=== PATIENT | female | born 1990 | race Caucasian/White ===

== ENCOUNTER 2023-06-09 20:14 | Emergency (ER) | payer OTHER, SELFPAY ==
[2023-06-09 20:16] VITALS: BP 153/102; PULSE 89; RESP 16; TEMP 36.4; O2SAT 100; BMI 43.4
--- NOTE | 2023-06-09 21:22 | RAD_ITS ---
INDICATION: foreign body EXAMINATION/TECHNIQUE: X-RAY - XR Neck Soft Tissue COMPARISON: FINDINGS: SOFT TISSUES: Unremarkable. There is a 3.0 x 2.2 cm heterogeneous opacity just below the epiglottis possibly represent a foreign body. EPIGLOTTIS: No pathologic thickening or enlargement. PROXIMAL AIRWAY: Grossly patent. RAD/Neck for Soft Tissue IMPRESSION: There is a 3.0 x 2.2 cm heterogeneous opacity just below the epiglottis possibly represent a foreign body. Electronically Signed: Wyatt Wallace DO at 21:43 EDT ,
[2023-06-09 22:14] VITALS: PULSE 74; RESP 16; O2SAT 96
--- NOTE | 2023-06-09 22:51 | CT_ITS ---
INDICATION: foreign body - abnormal neck xray EXAMINATION: CT NECK WITH CONTRAST - CT Soft Tissue Neck W/ Contrast Injection TECHNIQUE: Helically acquired images were obtained of the neck following IV contrast. A radiation dose optimization technique was used for this scan. IV Contrast dosage and agent: 75 mL Isovue-370 RADIATION DOSAGE (If Supplied By Facility): CTDIvol = ( 17.58 ) mGy, DLP = ( 1027.55 ) mGycm COMPARISON: Neck Soft Tissue radiograph June 09, 2023 FINDINGS: Mild symmetric enlargement of the lingual tonsils. [place] and adenoid tonsils are unremarkable. No Parapharyngeal abscess. Parapharyngeal fat is preserved. Salivary glands are symmetric and normal in appearance. Normal epiglottis. No prevertebral soft tissue thickening. Unremarkable symmetric vocal cords. Normal thyroid. Scattered mild paranasal sinus mucoperiosteal thickening. Leftward directed inferior osseous nasal septal spur contacting the inferior nasal turbinate. Paradoxical curvature of the anterior middle nasal turbinates. Partial opacification of the left maxillary infundibula. No acute osseous finding. Lung apices are clear. CT/Soft Tissue Neck WITH Contrast IMPRESSION: No CT evidence of foreign body within the imaged aerodigestive tract. Symmetric enlargement of the bilateral lingual tonsils without peritonsillar fluid collection or abscess. Scattered sinus disease. Sinus anatomy as above. Electronically Signed: Maciel Berg MD at 1:23 EDT ,
--- NOTE | 2023-06-09 22:52 | EX.ED.DYSGE1 ---
HPI History of Present Illness Chief Complaint: Foreign Body Informant: patient Narrative Narrative: 32-year-old female presenting to the emergency room with chief complaint of possible esophageal foreign body. Patient states she was cooking chicken and ate some shredded chicken. She states she felt that it got caught just below her larynx. She was able to drink a little bit of water but it came up shortly thereafter. She notes that it was not getting better so she came to emergency. Nursing protocol placed a neck x-ray. She states that just before the neck x-ray she felt something shift and is now feeling better. She notes that this has happened several times before but she has never had to seek treatment for it. Has never had endoscopy. She states that she was told recently that she had something abnormal with her thyroid and is supposed to follow-up on that. [facility] Medical History Asthma Home Medications Albuterol Inhaler 01/30/16 [History Last Taken Unknown] fluticasone propionate 250 mcg/actuation blister powder for inhalation (Flovent Diskus) 2 puff inhalation DAILY 01/30/16 [History Last Taken 01/29/16] montelukast 10 mg tablet 10 mg PO DAILY 01/30/16 [History Last Taken 01/29/16] vits,calcium no.78-iron fumarate-folic acid 29 mg-1 mg tablet (Prenatabs FA) 1 tab PO DAILY 01/30/16 [History Last Taken 01/29/16] Allergy/AdvReac Type Severity Reaction Status Date / Time penicillin G AdvReac Hives Verified 06/09/23 20:16 Social History Smoking Status: Never smoker ROS [facility] ED Constitutional Constitutional ED: Denies chills or weight loss Eyes Eyes: Denies change in vision or diplopia ENT ENT ED: Reports other Details: See history of present illness ; Denies ear pain, rhinorrhea or sore throat Cardiovascular Cardiovascular: Denies chest pain, orthopnea, palpitations or racing heartbeat Respiratory/Chest Respiratory/Chest: Denies cough, dyspnea or orthopnea Gastrointestinal Gastrointestinal: Denies abdominal pain, diarrhea, nausea or vomiting Genitourinary Genitourinary ED: Denies dysuria, hematuria or urinary frequency Musculoskeletal Musculoskeletal: Denies arthralgias or myalgias Integumentary Denies abscess or rash Neurologic Neurologic: Denies headache(s) or weakness Psychiatric Psychiatric: Denies anxiety, depression, suicidal ideation or suicidal thoughts Endocrine Endocrinology: Denies polydipsia, polyphagia or polyuria Allergic/Immunologic Allergic/Immunologic ED: Denies mouth swelling, tongue swelling or urticaria EXAM Physical Exam Narrative Exam Narrative: Well-appearing female sitting comfortably in the bed. Patient is handling secretions normally. No acute distress. Const Vital Signs: 06/09/23 20:16 06/09/23 22:14 06/09/23 22:58 Temperature 97.5 F L Temperature Source Temporal Pulse Rate 89 74 68 Respiratory Rate 16 16 19 H Respiratory Effort Respiratory Pattern Blood Pressure 153/102 H 135/98 H Blood Pressure Mean 119 110 Pulse Ox 100 96 97 Oxygen Delivery Method Room Air Room Air 06/09/23 23:12 06/10/23 00:00 06/10/23 01:38 Temperature 97.6 F L Temperature Source Pulse Rate 75 64 Respiratory Rate 16 16 Respiratory Effort Normal Non-Labored Respiratory Pattern Normal Blood Pressure 135/74 H 108/67 Blood Pressure Mean 94 80 Pulse Ox 99 100 Oxygen Delivery Method Room Air Positive well nourished, well developed and obese General Appearance ED: well developed Nutritional Appearance: obese HEENT Reports normocephalic, head/scalp atraumatic and moist mucous membranes Eyes PERRL and EOMs intact bilaterally Neck no lymphadenopathy, supple and no JVD Resp normal respiratory effort and clear to auscultation bilaterally Cardio regular rate, regular rhythm and no murmurs GI normal to inspection, nondistended, normoactive bowel sounds and non-tender Palpation: soft Back/Spine no CVA tenderness and normal ROM Extremity normal to inspection General Extremety ED: Negative for edema General Extremity: Negative for edema Neuro oriented x3 and CN's II-XII intact bilaterally Sensorium / Orientation: alert Motor Exam: strength 5/5 throughout Psych mental status grossly normal Mood & Affect: Negative for depressed or tearful Skin no rashes or lesions noted and no wounds MDM MDM MDM Narrative Medical decision making narrative: My independent interpretation of the plain films of the neck is possible for me body inferior epiglottis. Radiology read reviewed by myself. Patient was given a Coke and has been tolerating it. She is feeling better. She states that her throat however still feels raw.` CT of the neck was obtained with contrast. This was negative for obvious foreign body below the epiglottis that was noted on the x-ray. Patient is tolerating Coke. She will be discharged home. Advised her to follow-up with primary care discussed possible barium swallow versus endoscopy. History & Record Review Discussion w/independent historian: Patient Lab Data Attestation: I reviewed the patient's lab results. Labs: Laboratory Results - last 24 hr 06/09/23 06/10/23 23:11 00:14 Sodium Cancelled 135 L Potassium Cancelled 3.7 Chloride Cancelled 105 Carbon Dioxide Cancelled 24.0 Anion Gap Cancelled 6 BUN Cancelled 13 Creatinine Cancelled 0.87 Estim Creat Clear Calc Cancelled 109.14 Est GFR (MDRD) Af Amer Cancelled 96 Est GFR (MDRD) Non-Af Cancelled 79 BUN/Creatinine Ratio Cancelled 15.0 Glucose Cancelled 137 H Calcium Cancelled 8.5 Radiography Diagnostic Testing: Clinical Impression(s) from Imaging Studies Soft Tissue Neck X-Ray 06/09/23 21:22 IMPRESSION: There is a 3.0 x 2.2 cm heterogeneous opacity just below the epiglottis possibly represent a foreign body. Electronically Signed: Wyatt Wallace DO at 21:43 EDT , Soft Tissue Neck CT 06/09/23 22:51 IMPRESSION: No CT evidence of foreign body within the imaged aerodigestive tract. Symmetric enlargement of the bilateral lingual tonsils without peritonsillar fluid collection or abscess. Scattered sinus disease. Sinus anatomy as above. Electronically Signed: Maciel Berg MD at 1:23 EDT , Discharge Plan Triage Chief Complaint: Foreign Body ED Provider: Aaron Elizabeth Dx/Rx/DC Orders Clinical Impression: Esophageal foreign body, Throat pain Instructions: ED Esophageal Foreign Body, Resolved Prescriptions: No Action montelukast 10 MG tablet 10 mg PO DAILY fluticasone propionate [Flovent Diskus] 1 PUFF inhaler 2 puff inhalation DAILY [id number] [Prenatabs FA] 1 TABLET tablet 1 tab PO DAILY Albuterol Inhaler Primary Care Provider: Fredy Lezama Referrals: Fredy Lezama MD [Primary Care Provider] - Keep Madonna appointment Friend,DO Wei [Med Staff - Active Staff] - As soon as possible (for GI evaluation for possible endoscopy evaluation) Disposition Disposition: Home, Self Care Discharge Date/Time: 06/10/23 01:39
[2023-06-09 22:58] VITALS: BP 135/98; PULSE 68; RESP 19; O2SAT 97
[2023-06-10] VITALS: BP 135/74; PULSE 75; RESP 16; O2SAT 99
[2023-06-10 00:44] LABS: Anion Gap 6 (5-15); BUN 13 mg/dL (7-18); Calcium,Total 8.5 mg/dL (8.5-10.1); Chloride 105 mmol/L (98-107); Creatinine, Serum 0.87 mg/dL (0.55-1.02); EST Glomerular Filtration Rate 79 mL/min (>60); Est Glom Filt Rate - Afr Amer 96 mL/min (>60); Estimated Creatinine Clearance 109.14 ml/min; Glucose 137 mg/dL (74-106); Potassium 3.7 mmol/L (3.5-5.1); Sodium Level 135 mmol/L (136-145)
[2023-06-10 01:38] VITALS: BP 108/67; PULSE 64; RESP 16; TEMP 36.4; O2SAT 100
== END 2023-06-10 01:39 | disposition home or self-care (01) ==
PROVIDERS: Emergency Provider Emergency Medicine; PCP Family Medicine; Visit Provider Emergency Medicine
DX: T18.128A Food in esophagus causing other injury, initial encounter (principal); R07.0 Pain in throat; W44.F3XA Food entering into or through a natural orifice, initial encounter; Y93.89 Activity, other specified; J45.909 Unspecified asthma, uncomplicated; Z79.51 Long term (current) use of inhaled steroids
CPT/HCPCS: 70360; 70491; 80048; 99282; Q9967; A4216

== ENCOUNTER 2023-09-12 19:39 | Emergency (ER) | payer OTHER, SELFPAY ==
[2023-09-12 19:40] VITALS: BP 127/92; PULSE 87; RESP 16; TEMP 35.7; O2SAT 97
[2023-09-12 19:48] VITALS: BMI 43.3
--- NOTE | 2023-09-12 19:55 | EDS_ITS ---
HPI History of Present Illness Chief Complaint: Upper Extremity Injury Detail of Chief Complaint: Right hand injury Informant: patient Narrative Narrative: Patient presents secondary to right thumb injury. She was reaching between a fence to get a bucket, when her sheep hit her hand pinning it between the sheep and a fence. She has pain to the base of the right thumb and has not been able to move it since time of injury. She is right-hand dominant. [facility] Medical History Asthma Home Medications ?Medication ?Instructions ?Recorded ?Last Taken ?Type Albuterol Inhaler 01/30/16 Unknown History fluticasone propionate 250 2 puff inhalation DAILY 01/30/16 01/29/16 History mcg/actuation blister powder for inhalation (Flovent Diskus) montelukast 10 mg tablet 10 mg PO DAILY 01/30/16 01/29/16 History vits,calcium no.78-iron 1 tab PO DAILY 01/30/16 01/29/16 History fumarate-folic acid 29 mg-1 mg tablet (Prenatabs FA) Allergy/AdvReac Type Severity Reaction Status Date / Time penicillin G AdvReac Hives Verified 09/12/23 19:40 Social History Smoking Status: Never smoker ROS ROS ED Constitutional Constitutional ED: Denies chills or fever(s) Cardiovascular Cardiovascular: Denies chest pain Respiratory/Chest Respiratory/Chest: Denies cough or dyspnea Gastrointestinal Gastrointestinal: Denies abdominal pain Musculoskeletal Musculoskeletal: Reports extremity pain; Denies back pain Integumentary Denies Abrasions or rash Neurologic Neurologic: Reports paresthesias and weakness; Denies headache(s) Psychiatric Psychiatric: Denies anxiety or depression Allergic/Immunologic Allergic/Immunologic ED: Denies lip swelling or urticaria EXAM Physical Exam Const Vital Signs: 09/12/23 19:40 Temperature 96.3 F L Temperature Source Temporal Pulse Rate 87 Respiratory Rate 16 Blood Pressure 127/92 H Blood Pressure Mean 103 Pulse Ox 97 Oxygen Delivery Method Room Air Positive well nourished and well developed General Appearance ED: well developed HEENT Reports moist mucous membranes Eyes EOMs intact bilaterally Chest Wall inspection of chest normal and palpation of chest normal Resp normal respiratory effort and clear to auscultation bilaterally Cardio regular rate and regular rhythm GI non-tender Palpation: soft Extremity Extremity Narrative: Tender to palpation with mild edema over the proximal aspect of the right thumb. Decreased range of motion. He has good cap refill distally. No tenderness at the wrist or elbow. Neuro oriented x3 Psych mental status grossly normal MDM MDM MDM Narrative Medical decision making narrative: Patient given a dose of naproxen. Right hand x-rays obtained to evaluate for fracture, dislocation. Treatment and Re-Evaluation Narrative: Right hand x-rays per my interpretation reveal no obvious fracture or dislocation. Radiology interpretation reviewed and agrees. On repeat evaluation patient does have very slight flexion and extension at the thumb. She be placed in a thumb spica splint will monitor her symptoms. We did discuss possibility of a tendon injury, although now that she can slightly flex and extend my suspicion is less. I will refer her to orthopedic hand for follow-up if not improving. Patient comfortable with the plan. Discharge Plan Triage Chief Complaint: Upper Extremity Injury ED Provider: Melissa Sumner Dx/Rx/DC Orders Clinical Impression: Crushing injury of finger of right hand Instructions: ED Crush Injury, Hand Prescriptions: No Action montelukast 10 MG tablet 10 mg PO DAILY fluticasone propionate [Flovent Diskus] 1 PUFF inhaler 2 puff inhalation DAILY [id number] [Prenatabs FA] 1 TABLET tablet 1 tab PO DAILY Albuterol Inhaler Primary Care Provider: Fredy Lezama Referrals: Fredy Lezama MD [Primary Care Provider] - Lashay Navarro MD [Non-Staff] - As Needed Activity Restrictions/Additional Instructions: Dr. Navarro is one of the orthopedic hand surgeons at [facility] in [place]. If not improving, you can follow-up with her or any of her partners. Print Language: Russian Disposition Disposition: Home, Self Care
--- NOTE | 2023-09-12 20:00 | RAD_ITS ---
EXAM: XR RIGHT HAND COMPLETE, 3 OR MORE VIEWS CLINICAL INDICATION: injury TECHNIQUE: Frontal, lateral and oblique views of the right hand. COMPARISON: No relevant prior studies available. FINDINGS: BONES/JOINTS: Unremarkable. No acute fracture. No subluxation. Normal alignment. Preservation of the joint space. No sclerotic or destructive changes observed. SOFT TISSUES: Unremarkable. No soft tissue swelling or gas. No radiopaque foreign body. RAD/Hand Min 3 Views IMPRESSION: Negative right hand x-rays. Electronically Signed: Brandon Mcgrath MD at 21:08 EDT ,
[2023-09-12] MEDS: Naproxen 500 MG Tablet PO (20:05)
[2023-09-12 21:37] VITALS: BP 128/77; PULSE 71; RESP 16; TEMP 36.7; O2SAT 99
== END 2023-09-12 21:41 | disposition home or self-care (01) ==
PROVIDERS: Emergency Provider Emergency Medicine; PCP Family Medicine; Visit Provider Emergency Medicine
DX: S67.198A Crushing injury of other finger, initial encounter (principal); W55.32XA Struck by other hoof stock, initial encounter; Y93.89 Activity, other specified
CPT/HCPCS: 73130; 99282

== ENCOUNTER 2024-03-28 13:03 | Emergency (ER) | payer OTHER, SELFPAY ==
[2024-03-28 13:04] VITALS: BP 139/97; PULSE 69; RESP 16; TEMP 36.7; O2SAT 98; BMI 45.4
[2024-03-28 14:45] LABS: Absolute Lymphocyte Count 2.29 X10^3/uL (0.83-4.51); Basophil# 0.03 X10^3/uL; Basophil% 0.4 % (0-1); Eosinophil# 0.36 X10^3/uL; Eosinophils% 5.1 % (0-5); Lymphocyte # 2.29 X10^3/ul (0.83-4.51); Lymphocyte % 32.2 % (19-41); Mean Corp Hgb Conc 32.5 g/dL (32-36); Mean Corpuscular Hgb 28.6 pg (27.0-32.0); Mean Corpuscular Volume 87.9 fL (81-99); Mean Platelet Vol. 10.7 fl (6.2-12.0); Monocyte# 0.44 X10^3/uL; Monocyte% 6.2 % (0-10); NRBC Flagged by Analyzer 0 % (0-5); Neutrophil # 3.98 X10^3/uL (2.7-7.7); Neutrophil % 55.8 % (47-70); Platelet Count 355 K/mm3 (150-450); RBC Distribution Width CV 13.6 % (11.6-14.6); RBC Distribution Width SD 43.9 fl (35.1-43.9); Red Blood Count 4.55 M/mm3 (4.2-5.4); White Blood Count 7.1 K/mm3 (4.4-11.0)
[2024-03-28 15:05] LABS: Internal QC Validated? YES +Cl - CLEAR BKGD; Pregnancy, Serum, hCG Quali. NEGATIVE Negative
[2024-03-28 15:10] LABS: ALB/GLOB Ratio 0.8 RATIO (0.9-2.4); AST(SGOT) 14 U/L (15-37); Alanine Aminotransfer ALT/SGPT 23 U/L (13-56); Albumin, Serum 3.4 g/dL (3.2-5.0); Alkaline Phosphatase 86 U/L (45-117); Anion Gap 6 (5-15); BUN 11 mg/dL (7-18); Calcium,Total 8.9 mg/dL (8.5-10.1); Chloride 105 mmol/L (98-107); Creatinine, Serum 0.85 mg/dL (0.55-1.02); EST Glomerular Filtration Rate 81 mL/min (>60); Est Glom Filt Rate - Afr Amer 98 mL/min (>60); Estimated Creatinine Clearance 113.75 ml/min; Globulin 4.3 g/dL (2.2-4.2); Glucose 151 mg/dL (74-106); Potassium 3.9 mmol/L (3.5-5.1); Protein, Total 7.7 g/dL (6.4-8.2); Sodium Level 138 mmol/L (136-145)
--- NOTE | 2024-03-28 16:21 | CT_ITS ---
STUDY: CT ABDOMEN AND PELVIS WITH CONTRAST REASON FOR EXAM: Female, 33 years old. RLQ pain RADIATION DOSAGE (If Supplied By Facility): CTDIvol = ( 16.96 ) mGy, DLP = ( 1268.29 ) mGycm TECHNIQUE: Transaxial images were obtained from the dome of the diaphragm to the symphysis pubis without oral contrast. IV 100mL Isovue-300 was administered. Sagittal and coronal images were reconstructed. Individualized dose optimization techniques were used for this CT. COMPARISON: None. FINDINGS: The visualized lung bases are unremarkable. The visualized portions of the heart are within normal limits. Normal liver. Normal gallbladder and extrahepatic biliary system. Normal spleen. Normal pancreas. Normal bilateral adrenal glands. Normal right kidney. Normal left kidney. Normal visualized stomach. Normal small intestine. Normal colon. The appendix is visualized and appears normal. Normal abdominal aorta. Normal inferior vena cava. Normal retroperitoneum. Normal urinary bladder. Normal abdominal wall. Normal osseous structures. CT/Abdomen/Pelvis W IV Cont ONLY IMPRESSION: No acute pathology of the abdomen and pelvis. Electronically Signed: Wyatt Wallace DO at 17:08 [facility] Reading Location ID and State: [facility] / [place] Tel [phone], Service support ,
--- NOTE | 2024-03-28 16:22 | ED.VIS.GI ---
HPI HPI - GI History of Present Illness Chief Complaint: Abd Pain Informant: patient Narrative Narrative: Patient came from urgent care for evaluation. 1 week history waxing waning pain right lower back that wraps around to her lower abdomen. Has been using heating pads will slightly alleviate symptoms however pain will come back. Subjective fevers. Yesterday vomiting and diarrhea started nonbloody. Total of 3 vomiting episode last time this morning no hematemesis. Total of 2 diarrhea with last 1 this morning. She has been have urine frequency for 2 weeks. Her urine test that urgent care reported negative. Last menstrual period little over 2 weeks ago. 2 C-sections the past. No other abdominal surgeries. Allergic to penicillin and cephalexin causing hives. She ate some crackers 1/2-hour ago while in the waiting room. Patient denies any ovarian issues. Prior similar symptoms: No PFSH PFSH Medical History (Updated 03/28/24 @ 20:[address] Edy Bearden, DO) Enlarged thyroid delivery delivered Asthma Home Medications ?Medication ?Instructions ?Recorded ?Last Taken ?Type Albuterol Inhaler 01/30/16 Unknown History fluticasone propionate 250 2 puff inhalation DAILY 01/30/16 01/29/16 History mcg/actuation blister powder for inhalation (Flovent Diskus) montelukast 10 mg tablet 10 mg PO DAILY 01/30/16 01/29/16 History vits,calcium no.78-iron 1 tab PO DAILY 01/30/16 01/29/16 History fumarate-folic acid 29 mg-1 mg tablet (Prenatabs FA) Allergy/AdvReac Type Severity Reaction Status Date / Time penicillin G AdvReac Hives Verified 03/28/24 13:07 Social History Smoking Status: Never smoker ROS ROS ED Constitutional Constitutional ED: Reports fever(s); Denies chills or sweats ENT ENT ED: Denies sore throat Cardiovascular Cardiovascular: Denies chest pain, leg edema, palpitations or racing heartbeat Respiratory/Chest Respiratory/Chest: Denies cough, dyspnea or dyspnea on exertion Gastrointestinal Gastrointestinal: Reports abdominal pain, diarrhea and vomiting; Denies nausea Genitourinary Genitourinary ED: Reports urinary frequency; Denies dysuria or hematuria Musculoskeletal Musculoskeletal: Reports back pain; Denies extremity pain or neck pain Integumentary Denies rash or wounds Neurologic Neurologic: Denies headache(s), paresthesias or weakness EXAM Physical Exam Const Vital Signs: 03/28/24 13:04 03/28/24 17:02 03/28/24 19:01 Temperature 98.1 F 98.2 F 98.2 F Temperature Source Oral Oral Oral Pulse Rate 69 77 65 Respiratory Rate 16 18 18 Blood Pressure 139/97 H 133/85 H 116/65 Blood Pressure Mean 111 101 82 Pulse Ox 98 99 99 Oxygen Delivery Method Room Air Room Air Room Air Positive well nourished and well developed General Appearance ED: well developed and NAD HEENT Reports moist mucous membranes normocephalic and atraumatic Eyes General Eye ED: Yes normal appearance of both eyes Neck full ROM Chest Wall Chest: Negative for tenderness Resp normal respiratory effort and normal air movement Effort and Inspection: symmetric chest movement; Negative for respiratory distress Cardio regular rate, regular rhythm and no murmurs Peripheral Pulses: pulses 2+ throughout GI normal to inspection, nondistended, normoactive bowel sounds GI Narrative: Tenderness right lower quadrant there is no guarding. Negative Rovsing's. Palpation: Negative for guarding or rebound tenderness present Extremity normal to inspection General Extremety ED: Negative for edema or tenderness General Extremity: Negative for edema Neuro oriented x3 and no sensory deficits noted Sensorium / Orientation: awake and alert Skin no rashes or lesions noted and no wounds MDM MDM MDM Narrative Medical decision making narrative: Interventions / MDM: Differential diagnosis: Abdominal pain, ovarian cyst Diagnosis considered but do not suspect: Appendicitis however CT negative. Kidney stone however CT negative. My EKG interpretation: N/A Imaging independently reviewed and interpreted by myself: CT abdomen pelvis IV contrast: No acute process. Normal appendix. Pelvic ultrasound: Left ovarian cyst of 1.5 cm. External documents reviewed: N/A Test considered but not ordered:N/A ED course: Patient labs per protocol. White count normal creatinine normal negative. Vomiting diarrhea since yesterday will give IV fluids she declines any pain medicines at this time. With pain right lower quadrant obtain CT abdomen pelvis IV contrast for further evaluation. 165: Reported by nursing patient changed her mind on pain medications. Pending results of CT at this time. Morphine Zofran IV ordered. 1729: CT negative and normal appendix. Pain she is more comfortable on reevaluation and still had some pain lower abdomen pelvis region. There is no comment of the pelvic structures from CT. With 1 week of symptoms, will obtain ultrasound for further evaluation. 2009: Pelvic ultrasound notable for 1.5 cm left ovarian cyst. No other findings noted. Symptom control on exam. Unclear on diagnosis this time however she does have pain that radiates from her back around her abdomen there is no current rash she is a week and the symptoms. Discussed monitoring for rash that could be shingles. She will continue ibuprofen 600 mg every 6 hours as needed she does have a PCP and a felt washing machine tender. Return precaution discussed if develop fevers or worsening symptoms. All questions were answered. Re-evaluation: stable Disposition discussed with patient/family/significant other: Patient Case discussed with consulting clinician: N/A This note was generated with [employer] sent[employer] dictation software. It may contain incorrect words, spelling, and punctuation that were not noted in checking the note before signing. Lab Data Attestation: I reviewed the patient's lab results. Labs: Laboratory Results - last 24 hr 03/28/24 03/28/24 14:32 17:00 WBC 7.1 RBC 4.55 Hgb 13.0 Hct 40.0 MCV 87.9 MCH 28.6 MCHC 32.5 RDW Std Deviation 43.9 RDW Coeff of Ney 13.6 Plt Count 355 MPV 10.7 Immature Gran % (Auto) 0.300 Neut % (Auto) 55.8 Lymph % (Auto) 32.2 Fisher % (Auto) 6.2 Eos % (Auto) 5.1 H Baso % (Auto) 0.4 Absolute Neuts (auto) 4.0 Absolute Lymphs (auto) 2.29 Nucleated RBC % 0 Sodium 138 Potassium 3.9 Chloride 105 Carbon Dioxide 27.0 Anion Gap 6 BUN 11 Creatinine 0.85 Estim Creat Clear Calc 113.75 Est GFR (MDRD) Af Amer 98 Est GFR (MDRD) Non-Af 81 BUN/Creatinine Ratio 13.0 Glucose 151 H Calcium 8.9 Total Bilirubin 0.40 AST 14 L ALT 23 Alkaline Phosphatase 86 Total Protein 7.7 Albumin 3.4 Globulin 4.3 H Albumin/Globulin Ratio 0.8 L Serum , Qual NEGATIVE Urine Color Yellow Urine Clarity Clear Urine pH 6.5 Ur Specific [place] 1.015 Urine Protein 15 H Urine Glucose (UA) Normal Urine Ketones Negative Urine Occult Blood Negative Urine Nitrite Negative Urine Bilirubin Negative Urine Urobilinogen Normal Ur Leukocyte Esterase 25 H Urine RBC 0 SEEN Urine WBC 0-5 SEEN Ur Squamous Epith Cells 5-10 SEEN Ur Transition Epith Cell 0-5 SEEN Urine Bacteria RARE Urine Mucus 0 SEEN Radiography Diagnostic Testing: Clinical Impression(s) from Imaging Studies Abdomen/Pelvis CT 03/28/24 16:21 IMPRESSION: No acute pathology of the abdomen and pelvis. Electronically Signed: Wyatt Wallace DO at 17:08 EST , Transvaginal US 03/28/24 17:33 IMPRESSION: Small left ovarian cyst. Electronically Signed: Wyatt Wallace DO at 19:21 EST , Discharge Plan Triage Chief Complaint: Abd Pain ED Provider: Edy Bearden Dx/Rx/DC Orders Clinical Impression: Abdominal pain, Cyst of left ovary Instructions: Abdominal Pain, ED Ovarian Cyst Prescriptions: No Action montelukast 10 MG tablet 10 mg PO DAILY fluticasone propionate [Flovent Diskus] 1 PUFF inhaler 2 puff inhalation DAILY [id number] [Prenatabs FA] 1 TABLET tablet 1 tab PO DAILY Albuterol Inhaler Stand Alone Forms: ED Work / School Excuse Primary Care Provider: Fredy Lezama Referrals: Fredy Lezama MD [Primary Care Provider] - 3-5 Days if not improving Activity Restrictions/Additional Instructions: CT abdomen pelvis, normal appendix. Ultrasound pelvis 1.5 cm left ovarian cyst. Use ibuprofen 600 mg every 6 hours as needed. Monitor for rash on the right side that could be shingles. Follow-up your doctor. We develop fevers or worsening symptoms, return to ED for reevaluation. Print Language: Syriac Disposition Disposition: Home, Self Care
[2024-03-28] MEDS: 0.9% Normal Saline (1000mL) 1,000 ML 999 ML IV (16:58)
[2024-03-28] MEDS: Morphine 4 MG/ML Syringe IV (16:58)
[2024-03-28] MEDS: Ondansetron 4 MG/2 ML Vial IV (16:59)
[2024-03-28 17:02] VITALS: BP 133/85; PULSE 77; RESP 18; TEMP 36.8; O2SAT 99
[2024-03-28 17:12] LABS: Mucous, Urine 0 SEEN /hpf (<or=2+); Red Blood Cells-Urine 0 SEEN /hpf (0-5)
[2024-03-28 17:22] LABS: Color, Urine Yellow (Yellow); Glucose, Dipstick Normal (Normal); Ketone-Dipstick Negative (Negative); Leukocyte Esterase-Dipstick 25 /ul (Negative); Nitrite-Dipstick Negative (Negative); Occult Blood-Urine Negative /ul (Negative); Protein-Dipstick 15 mg/dl (Negative); Specific Gravity, Urine 1.015 (1.002-1.030); Urine Bilirubin Dipstick Negative (Negative); Urine Clarity Clear (Clear); Urine Urobilinogen Normal (Normal); Urine pH 6.5 (5.0 - 8.0)
[2024-03-28 17:31] LABS: Squamous Epithelial Cells - UA 5-10 SEEN /hpf (5-10); White Blood Cells 0-5 SEEN /hpf (0-5)
[2024-03-28 17:32] LABS: Bacteria RARE /hpf (None Seen); Transitional Epithelial - Ur 0-5 SEEN /hpf (0-5)
--- NOTE | 2024-03-28 17:33 | US_ITS ---
INDICATION: pain EXAMINATION: Ultrasound US Transvaginal Non-OB TECHNIQUE: Transvaginal (for optimal evaluation of the adnexa) pelvic ultrasound was performed. Grayscale, spectral waveform, and color flow Doppler evaluation of the adnexa. COMPARISON: FINDINGS: UTERUS: Anteverted. The uterus measures 11.6 x 6.8 x 6.0 cm. There is no uterine mass. The endometrial stripe measures 11 mm in AP diameter which is within normal limits. Slight fluid is noted in the cervical canal. RIGHT OVARY: 2.8 x 2.1 x 1.8 cm. Non-enlarged, normal echogenicity. There is normal arterial inflow and venous outflow present in the right ovary. LEFT OVARY: 3.7 x 2.4 x 2.3 cm. 1.6 x 1.9 x 1.5 cm cyst. There is normal arterial inflow and venous outflow present in the left ovary. FREE FLUID: None. US/Transvaginal Non- IMPRESSION: Small left ovarian cyst. Electronically Signed: Wyatt Wallace DO at 19:21 EST ,
[2024-03-28 19:01] VITALS: BP 116/65; PULSE 65; RESP 18; TEMP 36.8; O2SAT 99
[2024-03-28 20:22] VITALS: BP 118/72; PULSE 68; RESP 15; TEMP 36.6; O2SAT 99
== END 2024-03-28 20:23 | disposition home or self-care (01) ==
PROVIDERS: Emergency Provider Emergency Medicine; PCP Family Medicine; Referring Provider Emergency Medicine; Visit Provider Emergency Medicine
DX: R10.31 Right lower quadrant pain (principal); N83.202 Unspecified ovarian cyst, left side; M54.9 Dorsalgia, unspecified; R19.7 Diarrhea, unspecified; R11.10 Vomiting, unspecified; R35.0 Frequency of micturition; Z88.0 Allergy status to penicillin; Z79.899 Other long term (current) drug therapy
CPT/HCPCS: 74177; 76830; 80053; 81001; 84703; 85025; 96361; 96374; 96375; 99283; Q9967; A4216; J2405